=== PATIENT | female | born 1935 | race Caucasian/White ===

== ENCOUNTER → 2016-04-12 | Outpatient (CLI) | payer OTHER | LOC: BMCIMAGING 13:22 | PROVIDERS: ATTEND Family Medicine | DX: R05 Cough (principal); R06.02 Shortness of breath ==

== ENCOUNTER 2016-09-27 10:24 | Observation (INO) | payer OTHER ==
--- NOTE | 2016-09-27 10:40 | CPEKG ---
Heart Rate: 78 RR Interval: 769 P-R Interval: 124 QRSD Interval: 94 QT Interval: 376 QTC Interval: 429 P [place]: 24 QRS [place]: 59 T Wave [place]: 63 EKG Severity - ABNORMAL ECG - EKG Impression: SINUS RHYTHM EKG Impression: NONSPECIFIC T ABNORMALITIES, ANT-LAT LEADS Electronically Signed By: Stephanie Whittington 27-Sep-2016 15:02:46
--- NOTE | 2016-09-27 10:43 | EDPHY ---
H & P Stated Complaint: chest "heaviness" Time Seen by Provider: 09/27/16 10:30 HPI/ROS: CHIEF COMPLAINT: Chest pressure HISTORY OF PRESENT ILLNESS: The patient is a 81 y/o female with CAD complaining of intermittent chest pressure onset 2 nights ago. Onset of "an elephant sitting on my chest" 2 nights ago. Unable to sleep because of chest heaviness and difficulty breathing. Her symptoms were constant for 9 hours the first night. She felt improved yesterday morning when standing and walking around, but the same symptoms returned when she tried to sleep last night. This morning she developed chest pressure while standing and walking around. The pressure is located diffusely across her lower chest and feels similar to prior NH. The pressure is currently present, but feels improved. She took an aspirin this morning. She denies abdominal pain, vomiting, cough, fever, or other acute complaints. REVIEW OF SYSTEMS: Constitutional: No fever, no chills Eyes: No visual changes ENT: No sore throat Respiratory: No cough Cardiac: See HPI Gastrointestinal: No nausea, no vomiting, no abdominal pain Genitourinary: No hematuria, no dysuria Musculoskeletal: No leg pain or swelling Skin: No rash Neurological: No headache, no numbness, no weakness Psychiatric: No depression - Personal History Current Tetanus Diphtheria and Acellular Pertussis (TDAP): Yes Tetanus Vaccine Date: 03/2010 - Medical/Surgical History PMH: PMH includes: 1. Adenocarcinoma of left lung with lobectomy 2. Osteoporosis 3. Hypercholesterolemia 4. Anxiety 5. Depression 6. Popliteal artery embolus with embolectomy - 2014 7. Obstructive sleep apnea - CPAP 8. Atrial fibrillation 9. "silent heart attack" 2014 with 4 stents 10. Peripheral artery disease 11. Diverticulosis without diverticulitis 12. Claudication 13. COPD 14. Carotid disease Prior medical records reviewed including admission 04/23/14 for lobectomy and discharge summary 06/19/14 for popliteal embolectomy and patient's personal paperwork including [facility] discharge information from 09/24/16 for peripheral edema and depression. Hx Asthma: No Hx Chronic Respiratory Disease: No Hx Diabetes: No Hx Cardiac Disease: Yes Hx Renal Disease: No Hx Cirrhosis: No Hx Alcoholism: No Hx HIV/AIDS: No Hx Splenectomy or Spleen Trauma: No Other PMH: CAD, stents. Lung cancer, L upper lobectomy. fibromuscular dysplasia. anxiety/depression. high cholesterol - Social History Smoking Status: Never smoked Additional Social History: DNR status. . Import Clerk: Dr. Gaytan. PCP: Dr. Ammy Samaniego - Physical Exam Exam: General Appearance: Alert, pleasant Eyes: Pupils equal and round, no conjunctival pallor or injection ENT, Mouth: Mucous membranes moist Neck: Normal inspection Respiratory: Lungs are clear to auscultation Cardiovascular: Regular rate and rhythm Gastrointestinal: Abdomen is soft and non-tender Neurological: A&O, nonfocal, normal gait Skin: Warm and dry, no rash Extremities: Nontender, no pedal edema Psychiatric: Flat affect Constitutional: Initial Vital Signs Temperature (C) 36.9 C 09/27/16 10:33 Heart Rate 85 09/27/16 10:33 Respiratory Rate 18 09/27/16 10:33 Blood Pressure 131/87 H 09/27/16 10:33 O2 Sat (%) 95 09/27/16 10:33 O2 Delivery Mode Room Air Allergies/Adverse Reactions: phenytoin sodium [From Dilantin] Allergy (Severe, Verified 09/20/11 14:46) Rash phenytoin sodium extended [From Dilantin] Allergy (Severe, Verified 09/20/11 14: 46) Rash primidone [From Mysoline] Allergy (Severe, Verified 09/20/11 14:46) Other-Enter Comments propoxyphene HCl [From Darvon] Allergy (Severe, Verified 09/20/11 14:46) Vomiting Sulfa (Sulfonamide Antibiotics) Allergy (Severe, Verified 09/20/11 14:46) Vomiting meperidine HCl [From Demerol] Allergy (Intermediate, Verified 09/20/11 14:46) Rash Home Medications: Medication Instructions Recorded Escitalopram Oxalate [Lexapro 10 5 mg PO DAILY 04/19/14 MG] Ezetimibe/Simvastatin [Vytorin 1 each PO HS #0 04/19/14 10-20 mg Tablet] LORazepam [Ativan (*)] 1 mg PO BID@12,18 04/19/14 Metoprolol Tartrate 12.5 mg PO BID 06/19/14 Dabigatran Etexilate Mesyl 150 mg PO BID #0 cap 06/21/14 [Pradaxa 150 MG (*)] Acetaminophen [Tylenol 325mg (*)] 325 mg PO DAILY PRN 09/27/16 Aspirin [Aspirin 81mg (*)] 162 mg PO DAILY 09/27/16 Isosorbide Mononitrate [Imdur 30 15 mg PO HS 09/27/16 mg (*)] LORazepam [Ativan (*)] 0.5 mg PO DAILY 09/27/16 Nitroglycerin [Nitrostat 0.4 mg 0.4 mg SL Q5M PRN 09/27/16 (*)] buPROPion [Wellbutrin 75mg (*)] 75 mg PO BID 09/27/16 oxyCODONE/APAP 5/325 [Percocet 1 tab PO DAILY PRN 09/27/16 5/325 (*)] Medical Decision Making - Diagnostics EKG Interpretation: EKG interpreted by me reveals normal sinus rhythm, rate 78, T-wave inversion in V2 and V3. Imaging Results: Chest x-ray independently reviewed by me reveals no acute disease. Imaging: I viewed and interpreted images myself ED Course/Re-evaluation: This is a 81 y/o female with CAD who presents with a 2-day history of intermittent chest pressure. Stat EKG reveals T-wave inversions in V2 and V3 trauma similar to prior EKG; no evidence of acute ischemia. Given that symptoms are typical of her prior cardiac symptoms, she will require admission for further evaluation. I do not suspect pulmonary embolism or alternative etiology in this patient. 1200: Reassessed patient and discussed work up thus far. Her labs are unremarkable including troponin, d-dimer, and BNP. She continues to have chest pain. I've recommended admission, which she agrees to. 1205: Consulted with hospitalist service. Dr. Hook accepts admission to the PCU for chest pain. Differential Diagnosis: Differential diagnosis includes though it is not limited to pneumonia, pneumothorax, pulmonary embolism, aortic dissection, pericarditis, acute coronary syndrome. - Data Points Laboratory Results: Laboratory Results 09/27/16 10:35 09/27/16 10:35 Medications Given: Aspirin (Aspirin) 162 mg PO DAILY [facility] Stop: 03/27/17 08:59 Last Admin: 09/28/16 08:14 Dose: 81 mg Atorvastatin Calcium (Lipitor) 10 mg PO HS [facility] Stop: 03/26/17 20:59 Last Admin: 09/27/16 19:34 Dose: 10 mg Bupropion HCl (Wellbutrin) 75 mg PO BID [facility] Stop: 03/26/17 20:59 Last Admin: 09/28/16 08:15 Dose: 75 mg Dabigatran (Pradaxa) 150 mg PO BID [facility] Stop: 03/26/17 20:59 Last Admin: 09/27/16 19:34 Dose: 150 mg Ezetimibe (Zetia) 10 mg PO HS [facility] Stop: 03/26/17 20:59 Last Admin: 09/27/16 19:35 Dose: 10 mg Escitalopram Oxalate (Lexapro) 5 mg PO DAILY [facility] Stop: 03/27/17 08:59 Last Admin: 09/28/16 08:15 Dose: 5 mg Dextrose/Sodium Chloride (D5w 1/2 Ns) 1,000 mls @ 100 mls/hr IV CONT [facility] Stop: 03/26/17 18:14 Last Admin: 09/28/16 00:04 Dose: 1,000 mls Isosorbide Mononitrate (Imdur) 15 mg PO HS [facility] Stop: 03/26/17 20:59 Last Admin: 09/27/16 19:34 Dose: 15 mg Lorazepam (Ativan) 1 mg PO DAILY [facility] Stop: 03/27/17 08:59 Last Admin: 09/28/16 08:16 Dose: 1 mg Lorazepam (Ativan) 1 mg PO BID@12,18 [facility] Stop: 03/26/17 17:59 Last Admin: 09/27/16 18:21 Dose: 1 mg Metoprolol Tartrate (Lopressor) 12.5 mg PO BID [facility] Stop: 03/26/17 20:59 Last Admin: 09/28/16 08:16 Dose: 12.5 mg Departure - Departure Disposition: [facility] Inpatient Acute Clinical Impression: Chest pain Qualifiers: Chest pain type: other chest pain Qualified Code(s): R07.89 - Other chest pain Condition: Fair Report Scribed for: Stephanie Whittington Report Scribed by: Yolanda Breaux Date of Report: 09/27/16 Time of Report: 10:45 Physician Review and Approval Statement: 09/27/16 10:45 Portions of this note were transcribed by a medical assembly. I personally performed a history, physical exam, medical decision making, and confirmed accuracy of information the transcribed note.
[2016-09-27 10:44] LABS: % IMMATURE GRANULYOCYTES 0.3 % (0.0-1.1); ABSOLUTE IMMATURE GRANULOCYTES 0.02 10^3/uL (0.00-0.10); ADD DIFF? NO; ADD MORPH? NO; ADD SCAN? NO; ATYPICAL LYMPHOCYTE FLAG 0 (0-99); FRAGMENT RBC FLAG 0 (0-99); HEMATOCRIT 39.5 % (38.0-47.0); HEMOGLOBIN 13.5 g/dL (12.6-16.3); LEFT SHIFT FLG 0 (0-99); LIPEMIA HEMOLYSIS FLAG 90 (0-99); MEAN CELL HEMOGLOBIN CONCENTR. 34.2 g/dL (32.4-36.7); MEAN CELL VOLUME 93.6 fL (81.5-99.8); PLATELET CLUMPS FLAG 10 (0-99); PLATELET COUNT 208 10^3/uL (150-400); RED BLOOD CELL COUNT 4.22 10^6/uL (4.18-5.33); RED CELL DISTRIBUTION WIDTH 12.3 % (11.5-15.2)
[2016-09-27 11:00] LABS: ANION GAP 12 mEq/L (8-16); CALCIUM 9.1 mg/dL (8.5-10.4); CARBON DIOXIDE 22 mEq/l (22-31); CHLORIDE 101 mEq/L (97-110); CREATININE 0.9 mg/dL (0.6-1.0); GLOMERULAR FILTRATION RATE > 60; GLUCOSE 120 mg/dL (70-100); POTASSIUM 4.3 mEq/L (3.5-5.2); SODIUM 135 mEq/L (134-144)
[2016-09-27 11:11] LABS: TROPONIN I < 0.012 ng/mL (0-0.034)
[2016-09-27] MEDS ORDERED: ONDANSETRON 4 MG/2 ML VIAL IVP PRN (12:52)
[2016-09-27] MEDS ORDERED: ONDANSETRON DISINTEGRATING 4 MG TAB PO PRN (12:52)
[2016-09-27] MEDS ORDERED: ACETAMINOPHEN 325 MG TAB PO PRN (12:52)
[2016-09-27] MEDS ORDERED: NITROGLYCERIN 0.4 MG BTL SL PRN ×2 (13:00→17:51)
[2016-09-27] MEDS ORDERED: OXYCODONE/APAP 5/325 TAB PO PRN (17:51)
[2016-09-27] MEDS ORDERED: TEMAZEPAM 15 MG CAP PO PRN (17:56)
[2016-09-27] MEDS ORDERED: NORTRIPTYLINE HCL 10 MG CAP PO PRN (18:02)
[2016-09-27] MEDS ORDERED: D5W 1/2 NS 1,000 ML IV SCH (18:15)
[2016-09-27] MEDS: LORazepam 1 MG TAB PO SCH (18:21)
[2016-09-27] MEDS: METOPROLOL TARTRATE 25 MG TAB PO SCH (19:36)
--- NOTE | 2016-09-27 19:39 | GHP ---
[f rep st] HISTORY AND PHYSICAL DATE OF ADMISSION: 09/27/2016 SERVICE: [facility] Hospitalists. CONSULTS: Cardiology. CHIEF COMPLAINT: Chest pressure. HPI: Ms Dubose is a 81-year-old female who was brought into the emergency department today because of a sensation of "feeling like an elephant was sitting on her chest." She particularly noticed this when she was trying to sleep/lying flat and describes feeling unable to "get air in" despite using her CPAP. She says she has not slept in 2 days because of this. She denies any chest pain, per se and denies any shortness of breath. She denies noticing any recent edema but was told at her recent primary care visit on September 24 that she had some edema. She also was told that she recently gained some weight of about 10 pounds. She became more concerned as the symptoms continued and especially because she had a "silent heart attack" in 2014, seen by Dr. Rosa at [facility] and had 4 stents placed at that time. She has seen Dr. Gaytan at [facility] for cardiac followup but denies having any cardiac issues since the original procedure. She has a history of lung cancer that was treated with an upper lobectomy with a VATS procedure in 2014. She denies any nausea, vomiting, headache, diarrhea or cough. She says that normally she walks several miles a day and does continue to walk intermittently. She denies any increase in symptoms with walking. She says mainly she notices symptoms when she is lying down flat. She has occasionally had heartburn but she denies any GERD sensations currently. She was recently in with her primary care provider on September 24 to discuss ongoing issues with anxiety and depression. She was unable to tolerate decreasing Ativan and increasing her SSRI so she is currently trying a different titration schedule with her PCP, Dr. Samaniego. PAST MEDICAL HISTORY: 1. Left upper lobe adenocarcinoma, status post lobectomy and with a VATS procedure. 2. Fibromuscular dysplasia. 3. Obstructive sleep apnea, chronic CPAP use. 4. Generalized anxiety disorder/depression. 5. Former tobacco use. 6. History of paroxysmal atrial fibrillation. 7. Left lower extremity emboli status post thrombectomy in IR. PAST SURGICAL HISTORY: Lung cancer surgery, left lower extremity thrombectomy, distant history of tonsillectomy and tubal ligation, bilateral cataracts, distant history of appendectomy, some type of colon surgery, umbilical hernia surgery, left knee arthroscopy, and cardiac catheterization with 4 stents placed after a non-STEMI in 06/2014, Dr. Rosa. MEDICATIONS: 1. Pradaxa 150 mg twice a day. 2. Metoprolol 12.5 mg twice a day. 3. Aspirin 162 mg once a day. 4. Lorazepam 1 mg three times a day. 5. Lexapro 5 to 10 mg daily (trying to titrate). 6. Wellbutrin 75 mg twice a day. 7. Vytorin 1 tablet once a day. 8. Isosorbide 12.5 mg once a day. 9. Nitrostat p.r.n. 10. Oxycodone p.r.n. 11. Tylenol p.r.n. ALLERGIES: Sulfa causes vomiting. Darvon causes vomiting. Demerol causes rash. Dilantin causes rash. Mysoline causes confusion. SOCIAL HISTORY: She is (her in 2005 from cancer). She lives in [place] [facility] [place] [facility] [place]. She has several children, 1 of whom lives in [place], Pattie Hyde. She states that Pattie is her power of seo consultant. She is a former smoker. She denies alcohol use. She does have a MOST form and expresses desire to be do not resuscitate. PRIMARY CARE PROVIDER: Ammy Samaniego MD at [facility]. Primary stretcher and drier is Dr. Gaytan at [facility]. HEALTH CARE: Pneumovax 12/08/2005. Shingles vaccine 02/2005. Tdap 2010. Prevnar 13, 04/16/2014. OBJECTIVE: VITAL SIGNS: Blood pressure is 119/63, O2 saturation is 93% on room air. Temperature is 98.2, heart rate is 74, and respiratory rate is 19. GENERALL: She is a very pleasant, elderly female, talkative, in no apparent distress. HEENT: Normocephalic, atraumatic. Pupils equal, round, reactive to light. Extraocular movements are intact. Oropharynx is moist. No obvious lesions. NECK: Supple. No lymphadenopathy, thyromegaly, bruit or JVD noted. CARDIOVASCULAR: Regular rate and rhythm without murmur, rub or gallop. LUNGS: Clear to auscultation bilaterally. ABDOMEN: Soft, normoactive bowel sounds, nontender, nondistended. No hepatosplenomegaly appreciated. : Deferred. BREAST: Deferred. NEUROLOGIC: Cranial nerves 2-12 are grossly intact. Moves all extremities. Speech is fluent. EXTREMITIES: Trace edema noted bilaterally. Is in SCDs and TEDs. Distal pulses 2+. PSYCH: She appears quite anxious but has linear thought process and responding appropriately. Not encephalopathic. LABS: White blood cell count 5.72. Hemoglobin and hematocrit 13.5 and 39.5. Platelet count of 208. D-dimer 0.29. Chemistry: Sodium 135, potassium 4.3, chloride 101, CO2 22, BUN 11, creatinine 0.9. Glucose was 120, calcium 9.1. First troponin less than 0.012. BNP is 89. Review of [facility] laboratory shows vitamin D last checked in 2009 and was 54. TSH was last checked in 2014 and was 2.04. Chest x-ray shows some hyperextension in the hemidiaphragms. Surgical clips noted in the left hilar area. No acute edema or infiltrate noted. I personally reviewed this study and agree with Radiology interpretation. EKG shows a sinus rhythm, normal axis, normal rate. Question delta wave in leads 2 and 3, and nonspecific ST changes in precordial leads. ASSESSMENT/PLAN: 1. Chest discomfort in the setting of known cardiovascular disease status post 4 stents. She was placed on telemetry with monitoring, serial troponins have been ordered, and cardiology consult was done. Dr. Gaytan will evaluate the patient in the morning as she is hemodynamically stable and acute labs are normal. I have discussed with her that a cardiac cath would likely be appropriate given her history of 4 vessel stents. At this time she does not want to do cardiac cath but will allow Dr. Gaytan to revisit with her in the morning. I have made her n.p.o. after midnight with some maintenance fluids and I have also ordered an echo for the morning. I have held her anticoagulation pending possible interventional cardiology procedure in the morning. 2. History of lung cancer status post lobectomy. O2 is normal, chest x-ray does not reveal any acute pulmonary issues. D-dimer was also negative. 3. Obstructive sleep apnea. She did not bring her CPAP with her so we have ordered 1 for hospital use. I have ordered a sleeping tablet for to take p.r.n. (she says she has never taken sleeping tablet previously). Can choose between Restoril or Pamelor. 4. Anxiety and depression. Says she is seeing a therapist regularly. Has had a difficult time titrating off chronic benzodiazepines and on two or more effective doses of SSRIs. She has been working with her PCP, Dr. Samaniego about this as an outpatient. Certainly could be some component of anxiety contributing to her current symptoms. 5. Fibromuscular dysplasia. 6. History of paroxysmal atrial fibrillation. She is currently in sinus rhythm and is being monitored on telemetry. 7. History of left lower extremity emboli. She is on chronic anticoagulation which will be held overnight in anticipation of possible cardiac procedure tomorrow. 8. Deep vein thrombosis prophylaxis. SCDs and TEDs in place, pharmacological is contraindicated given a possible cardiac procedure in the morning. PCP: Ammy Samaniego MD at [facility]. CODE STATUS: MOST form reviewed, copy for the chart, DNR ordered per her instructions. DISPOSITION: Likely greater than 2 midnights depending on cardiac evaluation in the morning. /[id number]/MODL MTDD
[2016-09-27 19:41] LABS: CREATINE KINASE-MB FRACTION 0.56 ng/mL (0-3.19); TROPONIN I < 0.012 ng/mL (0-0.034)
[2016-09-27] MEDS: buPROPion 75 MG TAB PO SCH (19:48)
[2016-09-27] MEDS ORDERED: DABIGATRAN ETEXILATE MESYL 150 MG CAP PO SCH (21:00)
[2016-09-27] MEDS ORDERED: ISOSORBIDE MONONITRATE 30 MG TAB.SR PO SCH (21:00)
[2016-09-27] MEDS ORDERED: ATORVASTATIN CALCIUM 10 MG TAB PO SCH (21:00)
[2016-09-27] MEDS ORDERED: EZETIMIBE 10 MG TAB PO SCH (21:00)
[2016-09-28 05:21] LABS: HEMATOCRIT 37.6 % (38.0-47.0); HEMOGLOBIN 12.6 g/dL (12.6-16.3); MEAN CELL HEMOGLOBIN 31.9 pg (27.9-34.1); MEAN CELL HEMOGLOBIN CONCENTR. 33.5 g/dL (32.4-36.7); MEAN CELL VOLUME 95.2 fL (81.5-99.8); RED BLOOD CELL COUNT 3.95 10^6/uL (4.18-5.33); RED CELL DISTRIBUTION WIDTH 12.4 % (11.5-15.2)
[2016-09-28 05:26] LABS: INR 1.18 (0.83-1.16)
[2016-09-28 05:30] LABS: CHOLESTEROL 109 mg/dL (140-220); CHOLESTEROL/HDL RATIO 2.14 RATIO (1.00-4.44); HIGH DENSITY LIPOPROTEIN 51 mg/dL (40-85); LDL/HDL RATIO 0.92 RATIO (1.00-3.22); LOW DENSITY LIPOPROTEIN 47 mg/dL (80-100); NON-HIGH DENSITY LIPOPROTEIN 58 mg/dL (90-129); TRIGLYCERIDE 58 mg/dL (35-135); VERY LOW DENSITY LIPOPROTEINS 11 mg/dL (8-25)
[2016-09-28 05:44] LABS: VITAMIN D 25-HYDROXY TOTAL 49.5 ng/mL (30-100)
[2016-09-28 05:46] LABS: TROPONIN I < 0.012 ng/mL (0-0.034)
--- NOTE | 2016-09-28 07:37 | CPEKG ---
Heart Rate: 48 RR Interval: 1250 P-R Interval: 120 QRSD Interval: 86 QT Interval: 452 QTC Interval: 404 P [place]: 57 QRS [place]: 3 T Wave [place]: 30 EKG Severity - OTHERWISE NORMAL ECG - EKG Impression: SINUS BRADYCARDIA Electronically Signed By: Stephanie Whittington 28-Sep-2016 13:13:58
[2016-09-28] MEDS: buPROPion 75 MG TAB PO SCH ×3 (08:15→15:22)
[2016-09-28] MEDS: METOPROLOL TARTRATE 25 MG TAB PO SCH ×2 (08:16→15:22)
--- NOTE | 2016-09-28 08:55 | CPEKG ---
Heart Rate: 62 RR Interval: 968 P-R Interval: 120 QRSD Interval: 92 QT Interval: 420 QTC Interval: 427 P [place]: 17 QRS [place]: 56 T Wave [place]: 56 EKG Severity - ABNORMAL ECG - EKG Impression: SINUS RHYTHM EKG Impression: VENTRICULAR PREMATURE COMPLEX EKG Impression: T WAVE INVERSIONS CONSISTENT WITH ANTERIOR ISCHEMIA. Electronically Signed By: Jose R Solitario 28-Sep-2016 17:58:20
[2016-09-28] MEDS ORDERED: ESCITALOPRAM OXALATE 10 MG TAB PO SCH (09:00)
[2016-09-28] MEDS ORDERED: LORazepam 1 MG TAB PO SCH (09:00)
[2016-09-28] MEDS ORDERED: ASPIRIN 81 MG CHEWABLE TAB PO SCH (09:00)
--- NOTE | 2016-09-28 09:09 | ECHO ---
[id number] + + [address] : : [place] [address] : : [phone] + + Adult Echocardiographic Report + + :Name: SWETA RUIZ WStudy Date: 09/28/2016 07:37 AM : : Hospital Admission Number: [id number] Loc ation: 209: :: 1935 Gender: Female Height: 62 in : :Age: 81 yrs Race: WH Weight: 134 lb : :Reason For Study: Chest pressure : : BSA: 1.6 me ters2 : :History: S/P 4 stents (2014) : + + MMode/2D Measurements \T\ Calculations IVSd: 0.61 cm LVIDd: 4.6 cm FS: 40.3 % Ao root diam: LVPWd: 0.74 cm LVIDs: 2.8 cm EDV(Teich): 3.3 cm 97.9 ml LA dimension: ESV(Teich): 3.1 cm 28.4 ml EF(Teich): 71.0 % LVLd ap4: 6.6 cm SV(MOD-sp4): EDV(MOD-sp4): 31.0 ml 43.0 ml LVLs ap4: 5.4 cm ESV(MOD-sp4): 12.0 ml EF(MOD-sp4): 72.1 % Normal Measurement Values: + + :LVIDd (3.5-5.7cm) IVSd (0.6-1.1cm) LVPWd (0.6-1.1cm) Aortic Root (2.0-3.7cm)Left Atrium (1.5-4.0cm): :LV Vol(d) (76-115ml) LV Vol(s) (29-48ml) Ejec Fraction (50-65%)PV Homer (0.6- 1.2m/s) TV Homer (0.4-1.0m/s) : :MV E Homer (0.8-1.0m/s)MV A Homer (0.3-1.0m/s)LVOT Homer (0.7-1.2m/s) Asc Ao Homer ( 0.9-1.8m/s) : + + Doppler Measurements \T\ Calculations MV E max homer: 79.0 cm/sec Ao V2 max: 127.6 cm/sec MV A max homer: 101.2 cm/sec Ao max P.5 mmHg MV E/A: 0.78 Left Ventricle The left ventricle is normal in size. There is normal left ventricular wall thickness. Left ventricular systolic function is normal. Ejection Fraction = 60-65%. No regional wall motion abnormalities noted. Right Ventricle The right ventricle is normal in size and function. Atria The left atrial size is normal. Right atrial size is normal. The interatrial septum is intact with no evidence for an atrial septal defect. Mitral Valve Calcified mitral apparatus. There is no evidence of mitral valve prolapse. There is no mitral valve stenosis. There is mild to moderate mitral regurgitation. Tricuspid Valve Normal tricuspid valve. There is trace tricuspid regurgitation. Aortic Valve The aortic valve is trileaflet. The aortic valve opens well. There is no aortic stenosis. There is no aortic insufficiency. Pulmonic Valve The pulmonic valve is normal in structure and function. There is no pulmonic valvular regurgitation. Great Vessels The aortic root is normal size. Pericardium/Pleural There is no pericardial effusion. There is a fat pad seen. Conclusion A complete two-dimensional transthoracic echocardiogram was performed (2D, M-mode, Doppler and color flow Doppler). Left ventricular systolic function is normal. Ejection Fraction = 60-65%. Calcified mitral apparatus. There is mild to moderate mitral regurgitation. There is trace tricuspid regurgitation. There is a fat pad seen. Mitral annular calcification. Final Reading Physician: Eliseo Terrell signed on 09/28/2016 09:09 AM Ordering Physician: FABIAN LEES Performed By: Gemma Obando, PARI
--- NOTE | 2016-09-28 10:42 | PDCARCONS ---
Cardiology Consult Reason for Consult: Chest pressure Chief Complaint: Chest pressure Requesting Physician: Nereida History of Present Illness: 81-year-old female admitted with stage III day history of pressure in the chest. Patient's past cardiac history is somewhat unclear. [facility] with different symptoms. At that time she was taken to the cardiac catheterization lab by Dr. Ferrera. She was told that she had fibromuscular dysplasia. She had 4 stents placed but was told that there was an incomplete result with poor clinical result. It was felt at that time that she was likely the within 2-24 hours. This was in 2014. She was discharged to home hospice but recovered well and has had no limitations since that time. She has been cared for by Dr. Gaytan at the [facility]. She has had follow-up testing which was on unremarkable. She walks daily without limitations. She was diagnosed with sleep apnea. She uses a automatic CPAP system. On Tuesday she began noticing that was pushing more air into her chest than usual. She felt that the pressure she felt was related to this. Tuesday and Tuesday the pressure resolved when she sat up. Yesterday it did not. She was advised to come to the emergency room for further evaluation and was admitted. She had pressure continuously from 9 in the morning until 12:00 p.m. last night. Patient denies syncope or near syncope. She has had no chest pain/angina. She has had no nausea vomiting. She has had no diaphoresis. She is very clear that this discomfort is a pressure. History Information - Allergies/Home Medication List Allergies/Adverse Reactions: phenytoin sodium [From Dilantin] Allergy (Severe, Verified 09/20/11 14:46) Rash phenytoin sodium extended [From Dilantin] Allergy (Severe, Verified 09/20/11 14: 46) Rash primidone [From Mysoline] Allergy (Severe, Verified 09/20/11 14:46) Other-Enter Comments propoxyphene HCl [From Darvon] Allergy (Severe, Verified 09/20/11 14:46) Vomiting Sulfa (Sulfonamide Antibiotics) Allergy (Severe, Verified 09/20/11 14:46) Vomiting meperidine HCl [From Demerol] Allergy (Intermediate, Verified 09/20/11 14:46) Rash Home Medications: Escitalopram Oxalate [Lexapro 10 MG] 5 mg PO DAILY 02/27/15 [Last Taken 09/27/16 ] Ezetimibe/Simvastatin [Vytorin 10-20 mg Tablet] 1 each PO HS #0 04/19/14 [Last Taken 09/26/16] LORazepam [Ativan (*)] 1 mg PO BID@12,18 04/19/14 [Last Taken 09/26/16 18:00] Metoprolol Tartrate 12.5 mg PO BID 06/19/14 [Last Taken 09/27/16] Acetaminophen [Tylenol 325mg (*)] 325 mg PO DAILY PRN 09/27/16 [Last Taken Unknown] Aspirin [Aspirin 81mg (*)] 162 mg PO DAILY 09/27/16 [Last Taken 09/27/16] Isosorbide Mononitrate [Imdur 30 mg (*)] 15 mg PO HS 09/27/16 [Last Taken ] LORazepam [Ativan (*)] 0.5 mg PO DAILY 09/27/16 [Last Taken 09/27/16] Nitroglycerin [Nitrostat 0.4 mg (*)] 0.4 mg SL Q5M PRN 09/27/16 [Last Taken Unknown] buPROPion [Wellbutrin 75mg (*)] 75 mg PO BID 09/27/16 [Last Taken 09/27/16] oxyCODONE/APAP 5/325 [Percocet 5/325 (*)] 1 tab PO DAILY PRN 09/27/16 [Last Taken Unknown] I have personally reviewed and updated: family history, medical history, social history, surgical history - Past Medical History Additional medical history: Fibromuscular dysplasia, cardiac event of uncertain etiology. - Surgical History Reports: coronary stent - Family History Positive for: non-pertinent - Social History Smoking Status: Never smoked Additional social history: She lost her last year to cancer. She lives alone. She has 3 involved children. She is depressed. Cardiac History - Cardiac History Cardiac Risk Factors: age > 65 Physical Exam Temp Pulse Resp BP Pulse Ox 36.7 C 75 16 119/68 96 09/28/16 07:31 09/28/16 07:31 09/28/16 07:31 09/28/16 07:31 09/28/16 07:31 O2 (L/minute) 2 Constitutional: no apparent distress, appears nourished Eyes: other (Left eye has scleral injection with anisocoria.) Ears, Nose, Mouth, Throat: moist mucous membranes Cardiovascular: regular rate and rhythym, no murmur, rub, or gallop, No systolic murmur, No JVD Peripheral Pulses: 1+: carotid (R), carotid (L), femoral (R), femoral (L), dorsalis-pedis (R), dorsalis-pedis (L) Respiratory: no respiratory distress, no rales or rhonchi, clear to auscultation Gastrointestinal: normoactive bowel sounds, soft, non-tender abdomen, no palpable masses Genitourinary: no bladder fullness Skin: warm, normal color, no rashes or abrasions Musculoskeletal: full muscle strength Neurologic: AAOx3, sensation intact bilaterally, No weakness, No facial droop Psychiatric: interacting appropriately, not anxious, depressed Lymph, Heme, Immunologic: no cervical LAD, no supraclavicular LAD Lab and Imaging 09/28/16 04:30 09/27/16 10:35 WBC 4.81 10^3/uL (3.80-9.50) 09/28/16 04:30 RBC 3.95 10^6/uL (4.18-5.33) L 09/28/16 04:30 Hgb 12.6 g/dL (12.6-16.3) 09/28/16 04:30 Hct 37.6 % (38.0-47.0) L 09/28/16 04:30 MCV 95.2 fL (81.5-99.8) 09/28/16 04:30 MCH 31.9 pg (27.9-34.1) 09/28/16 04:30 MCHC 33.5 g/dL (32.4-36.7) 09/28/16 04:30 RDW 12.4 % (11.5-15.2) 09/28/16 04:30 Plt Count 190 10^3/uL (150-400) 09/28/16 04:30 MPV 10.0 fL (8.7-11.7) 09/27/16 10:35 Neut % (Auto) 66.7 % (39.3-74.2) 09/27/16 10:35 Lymph % (Auto) 24.5 % (15.0-45.0) 09/27/16 10:35 [place] % (Auto) 6.8 % (4.5-13.0) 09/27/16 10:35 Eos % (Auto) 1.2 % (0.6-7.6) 09/27/16 10:35 Baso % (Auto) 0.5 % (0.3-1.7) 09/27/16 10:35 Nucleat RBC Rel Count 0.0 % (0.0-0.2) 09/27/16 10:35 Absolute Neuts (auto) 3.81 10^3/uL (1.70-6.50) 09/27/16 10:35 Absolute Lymphs (auto) 1.40 10^3/uL (1.00-3.00) 09/27/16 10:35 Absolute Monos (auto) 0.39 10^3/uL (0.30-0.80) 09/27/16 10:35 Absolute Eos (auto) 0.07 10^3/uL (0.03-0.40) 09/27/16 10:35 Absolute Basos (auto) 0.03 10^3/uL (0.02-0.10) 09/27/16 10:35 Absolute Nucleated RBC 0.00 10^3/uL (0-0.01) 09/27/16 10:35 Immature Gran % 0.3 % (0.0-1.1) 09/27/16 10:35 Immature Gran # 0.02 10^3/uL (0.00-0.10) 09/27/16 10:35 PT 15.0 SEC (12.0-15.0) 09/28/16 04:30 INR 1.18 (0.83-1.16) H 09/28/16 04:30 D-Dimer 0.29 ug/mLFEU (0.00-0.50) 09/27/16 10:31 Sodium 135 mEq/L (134-144) 09/27/16 10:35 Potassium 4.3 mEq/L (3.5-5.2) 09/27/16 10:35 Chloride 101 mEq/L (97-110) 09/27/16 10:35 Carbon Dioxide 22 mEq/l (22-31) 09/27/16 10:35 Anion Gap 12 mEq/L (8-16) 09/27/16 10:35 BUN 11 mg/dL (7-23) 09/27/16 10:35 Creatinine 0.9 mg/dL (0.6-1.0) 09/27/16 10:35 Estimated GFR > 60 09/27/16 10:35 Glucose 120 mg/dL (70-100) H 09/27/16 10:35 Calcium 9.1 mg/dL (8.5-10.4) 09/27/16 10:35 CK-MB (CK-2) Fraction 0.60 ng/mL (0-3.19) 09/28/16 04:30 Troponin I < 0.012 ng/mL (0-0.034) 09/28/16 04:30 NT-Pro-B Natriuret Pep 89 pg/mL (0-450) 09/27/16 10:35 Triglycerides 58 mg/dL (35-135) 09/28/16 04:30 Cholesterol 109 mg/dL (140-220) L 09/28/16 04:30 Cholesterol Risk Factr 0.4 (0.2-1.0) 09/28/16 04:30 LDL Cholesterol, Calc 47 mg/dL (80-100) L 09/28/16 04:30 LDL Risk Factor 0.4 (0.2-1.0) 09/28/16 04:30 VLDL Cholesterol 11 mg/dL (8-25) 09/28/16 04:30 Non-HDL Cholesterol 58 mg/dL (90-129) L 09/28/16 04:30 HDL Cholesterol 51 mg/dL (40-85) 09/28/16 04:30 LDL/HDL Ratio 0.92 RATIO (1.00-3.22) L 09/28/16 04:30 Cholesterol/HDL Ratio 2.14 RATIO (1.00-4.44) 09/28/16 04:30 25-OH Vitamin D Total 49.5 ng/mL (30-100) 09/28/16 04:30 TSH 2.710 uIU/mL (0.465-4.680) 09/28/16 04:30 Interpretation: Mild hyperinflation without infiltrate. No significant air in the stomach. EKG additional interpertation: Sinus rhythm with subtle T-wave inversions V1 through V3. No acute ST-T changes. No evolving changes over 24 hours. A/P Assessment: 3 day history of what sounds like air trapping in the lower chest. Associated with different experience of her CPAP with more air blowing into her mouth. I think this is likely the etiology of her discomfort. With 3 days of discomfort negative cardiac enzymes stable EKG I do not think this represents an acute coronary syndrome. Patient's past cardiac history is unclear at this point. Fibromuscular dysplasia and a very abnormal angiogram is all I know at this point. She denies other signs or symptoms concerning for heart failure or angina. Her echocardiogram today shows normal left ventricular function. Plan: Ambulate patient in the [place] with a flight of stairs. If she has no discomfort with plan for discharge. Follow up with Dr. Merritt Gaytan as an outpatient 14 days. I think it is important to review her diagnostic angiograms from [facility] to determine what happened in 2014 and to guide future medical management. Would not recommend further risk stratification at this point, until we find out what happened at [facility]. Past Medical History - Personal History Current Tetanus Diphtheria and Acellular Pertussis (TDAP): Yes Tetanus Vaccine Date: 03/2010 - Medical/Surgical History Hx Asthma: No Hx Chronic Respiratory Disease: No Hx Cardiac Disease: Yes Hx Diabetes: No Hx Renal Disease: No Hx Alcoholism: No Hx Cirrhosis: No Hx HIV/AIDS: No Hx Splenectomy or Spleen Trauma: No Other PMH: CAD, stents. Lung cancer, L upper lobectomy. fibromuscular dysplasia. anxiety/depression. high cholesterol - Social History Smoking Status: Never smoked Review of Systems - Review of Systems Constitutional: malaise. denies: chills, fever EENTM: no symptoms reported Respiratory: other (pressure with breathing) Cardiac: denies: chest pain, edema, irregular heart rate, lightheadedness, palpitations, syncope Gastrointestinal/Abdominal: no symptoms reported. denies: abdominal distention Genitourinary: no symptoms Musculoskelatal: no symptoms Skin: no symptoms Neurological: no symptoms Hematologic/Lymphatic: no symptoms reported Immunologic/allergic: no symptoms reported
[2016-09-28 11:15] VITALS: BP 119/64; PULSE 69; RESP 20; TEMP 97.4
[2016-09-28] MEDS: LORazepam 1 MG TAB PO SCH (12:32)
[2016-09-28 13:49] VITALS: O2SAT 87
== END 2016-09-28 15:35 | disposition home or self-care (01) ==
LOC: EDUNIT# → F2W 12:57
PROVIDERS: ADMIT Internal Medicine; ATTEND Internal Medicine
DX: R07.89 Other chest pain (principal); I25.10 Atherosclerotic heart disease of native coronary artery without angina pectoris; J44.9 Chronic obstructive pulmonary disease, unspecified; I25.2 Old myocardial infarction; Z85.118 Personal history of other malignant neoplasm of bronchus and lung; I73.9 Peripheral vascular disease, unspecified; I65.29 Occlusion and stenosis of unspecified carotid artery; E78.00 Pure hypercholesterolemia, unspecified; G47.33 Obstructive sleep apnea (adult) (pediatric); Z87.891 Personal history of nicotine dependence; Z95.5 Presence of coronary angioplasty implant and graft
CPT/HCPCS: 71020; 93005; 93306; G0378

== ENCOUNTER → 2017-03-03 | Outpatient (CLI) | payer OTHER | LOC: BMCIMAGING 12:20 | PROVIDERS: ATTEND Physician Assistant | DX: R06.1 Stridor (principal); J98.4 Other disorders of lung; Z85.118 Personal history of other malignant neoplasm of bronchus and lung ==

== ENCOUNTER 2017-04-17 19:07 | Inpatient (IN) | payer OTHER ==
[2017-04-17] MEDS ORDERED: IPRATROPIUM/ALBUTEROL 3 ML DEYVIAL IH ONE (19:19)
--- NOTE | 2017-04-17 19:19 | EDPHY ---
H & P Stated Complaint: Cough, Generalized weakness Time Seen by Provider: 04/17/17 19:18 HPI/ROS: CHIEF COMPLAINT: Cough, dyspnea HISTORY OF PRESENT ILLNESS: The patient presents to the emergency department with severe cough and dyspnea. The patient reports her symptoms began several weeks ago. She initially had some improvement of her symptoms however had progression worsening symptoms over the past 3-4 days. The patient does have a history of COPD but does not use regular inhalers. She is not on oxygen. She has a history of coronary artery disease status post CABG several years ago. The patient denies any abdominal pain, vomiting or diarrhea. The patient was seen by home health service who evaluated the patient and referred her to the emergency department for further workup. The patient reports severe dyspnea with expiratory wheezing. REVIEW OF SYSTEMS: A comprehensive 10 point review of systems is otherwise negative aside from elements mentioned in the history of present illness. Source: Patient Exam Limitations: No limitations - Personal History Current Tetanus Diphtheria and Acellular Pertussis (TDAP): Yes Tetanus Vaccine Date: 03/2010 - Medical/Surgical History Hx Asthma: No Hx Chronic Respiratory Disease: No Hx Diabetes: No Hx Cardiac Disease: Yes Hx Renal Disease: No Hx Cirrhosis: No Hx Alcoholism: No Hx HIV/AIDS: No Hx Splenectomy or Spleen Trauma: No Other PMH: CAD, stents. Lung cancer, L upper lobectomy. fibromuscular dysplasia. anxiety/depression. high cholesterol - Social History Smoking Status: Never smoked - Physical Exam Exam: General Appearance: Alert, mild discomfort secondary to respiratory distress Eyes: Pupils equal and round no pallor or injection ENT, Mouth: Mucous membranes moist Respiratory: Tachypnea, diffuse expiratory wheezing, Cardiovascular: Regular rate and rhythm Gastrointestinal: Abdomen is soft and nontender, no masses, bowel sounds normal Neurological: 5/5 strength noted all 4 extremities Skin: Warm and dry, no rashes Musculoskeletal: Neck is supple nontender Extremities: No asymmetry, no edema Constitutional: Initial Vital Signs Temperature (C) 37.0 C 04/17/17 19:14 Heart Rate 90 04/17/17 19:14 Respiratory Rate 20 04/17/17 19:14 Blood Pressure 128/83 H 04/17/17 19:14 O2 Sat (%) 92 04/17/17 19:14 O2 Delivery Mode Room Air Allergies/Adverse Reactions: phenytoin sodium [From Dilantin] Allergy (Severe, Verified 04/17/17 19:17) Rash phenytoin sodium extended [From Dilantin] Allergy (Severe, Verified 04/17/17 19: 17) Rash primidone [From Mysoline] Allergy (Severe, Verified 04/17/17 19:17) Other-Enter Comments propoxyphene HCl [From Darvon] Allergy (Severe, Verified 04/17/17 19:17) Vomiting Sulfa (Sulfonamide Antibiotics) Allergy (Severe, Verified 04/17/17 19:17) Vomiting meperidine HCl [From Demerol] Allergy (Intermediate, Verified 04/17/17 19:17) Rash Home Medications: Medication Instructions Recorded Escitalopram Oxalate [Lexapro 10 5 mg PO DAILY 04/19/14 MG] Ezetimibe/Simvastatin [Vytorin 1 each PO HS #0 04/19/14 10-20 mg Tablet] LORazepam [Ativan (*)] 1 mg PO BID@12,18 04/19/14 Metoprolol Tartrate 12.5 mg PO BID 06/19/14 Dabigatran Etexilate Mesyl 150 mg PO BID #0 cap 06/21/14 [Pradaxa 150 MG (*)] Acetaminophen [Tylenol 325mg (*)] 325 mg PO DAILY PRN 09/27/16 Aspirin [Aspirin 81mg (*)] 162 mg PO DAILY 09/27/16 Isosorbide Mononitrate [Imdur 30 15 mg PO HS 09/27/16 mg (*)] LORazepam [Ativan (*)] 0.5 mg PO DAILY 09/27/16 Nitroglycerin [Nitrostat 0.4 mg 0.4 mg SL Q5M PRN 09/27/16 (*)] buPROPion [Wellbutrin 75mg (*)] 75 mg PO BID 09/27/16 oxyCODONE/APAP 5/325 [Percocet 1 tab PO DAILY PRN 09/27/16 5/325 (*)] Acetaminophen [Tylenol 325mg (*)] 650 mg PO Q4HRS PRN #0 tab 09/28/16 Medical Decision Making - Diagnostics EKG Interpretation: EKG: Complete interpretation has been separately recorded in the [facility] archive. Summary impression: Sinus rhythm, rate 91, no ischemic changes ED Course/Re-evaluation: The patient presents the emergency department with acute dyspnea and wheezing. The patient had an IV established. She received supplemental oxygen. The patient received 125 mg of Solu-Medrol. The patient was placed on a test fixture designer. She was taken for a chest x-ray which demonstrates no evidence of an obvious infiltrate, pneumothorax or heart failure. The patient presents to the ED with fairly significant dyspnea. She has a RSV infection. The patient will be admitted to the hospital further evaluation and management. Consultation was made with Dr. Davis from the hospitalist service who will admit the patient to the hospital this evening. Re-evaluated the patient at 8:20 p.m.. Her tachypnea is improving. Differential Diagnosis: Differential diagnosis considered includes pneumonia, COPD exacerbation, influenza, bronchitis, heart failure, arrhythmia, influenza - Data Points Laboratory Results: Laboratory Results 04/17/17 19:50 04/17/17 04/17/17 04/17/17 19:50 19:50 19:25 WBC 4.87 10^3/uL 10^3/uL (3.80-9.50) RBC 4.38 10^6/uL 10^6/uL (4.18-5.33) Hgb 13.7 g/dL g/dL (12.6-16.3) Hct 41.8 % % (38.0-47.0) MCV 95.4 fL fL (81.5-99.8) MCH 31.3 pg pg (27.9-34.1) MCHC 32.8 g/dL g/dL (32.4-36.7) RDW 13.1 % % (11.5-15.2) Plt Count 167 10^3/uL 10^3/uL (150-400) MPV 9.5 fL fL (8.7-11.7) Neut % (Auto) 57.9 % % (39.3-74.2) Lymph % (Auto) 23.2 % % (15.0-45.0) [place] % (Auto) 14.6 % H % (4.5-13.0) Eos % (Auto) 3.3 % % (0.6-7.6) Baso % (Auto) 0.8 % % (0.3-1.7) Nucleat RBC Rel Count 0.0 % % (0.0-0.2) Absolute Neuts (auto) 2.82 10^3/uL 10^3/uL (1.70-6.50) Absolute Lymphs (auto) 1.13 10^3/uL 10^3/uL (1.00-3.00) Absolute Monos (auto) 0.71 10^3/uL 10^3/uL (0.30-0.80) Absolute Eos (auto) 0.16 10^3/uL 10^3/uL (0.03-0.40) Absolute Basos (auto) 0.04 10^3/uL 10^3/uL (0.02-0.10) Absolute Nucleated RBC 0.00 10^3/uL 10^3/uL (0-0.01) Immature Gran % 0.2 % % (0.0-1.1) Immature Gran # 0.01 10^3/uL 10^3/uL (0.00-0.10) Sodium Pending Potassium Pending Chloride Pending Carbon Dioxide Pending Anion Gap Pending BUN Pending Creatinine Pending Estimated GFR Pending Glucose Pending Calcium Pending Nasal Influenza A PCR Pending Nasal Influenza B PCR Pending Medications Given: Discontinued Medications Albuterol/Ipratropium (Duoneb) 3 ml IH EDNOW ONE Stop: 04/17/17 19:20 Last Admin: 04/17/17 19:57 Dose: 3 ml Methylprednisolone Sodium Succinate (Solu-Medrol) 125 mg IVP EDNOW ONE Stop: 04/17/17 19:37 Last Admin: 04/17/17 19:57 Dose: Not Given Departure - Departure Disposition: [facility] Inpatient Acute Clinical Impression: Chronic obstructive pulmonary disease with acute exacerbation, RSV ( respiratory syncytial virus infection), Lung cancer Condition: Fair Referrals: Ammy Samaniego MD [Primary Care Provider] - As per Instructions
[2017-04-17] MEDS ORDERED: methylPREDNISolone SOD SUCC 125 MG/2 ML VIAL IVP ONE (19:36)
[2017-04-17 19:56] LABS: PLATELET COUNT 167 10^3/uL (150-400)
--- NOTE | 2017-04-17 20:22 | CPEKG ---
Heart Rate: 91 RR Interval: 659 P-R Interval: 147 QRSD Interval: 90 QT Interval: 352 QTC Interval: 434 P [place]: 0 QRS [place]: 38 T Wave [place]: 35 EKG Severity - ABNORMAL ECG - EKG Impression: SINUS RHYTHM EKG Impression: RIGHT ATRIAL ABNORMALITY Electronically Signed By: Fabio Murillo 17-Apr-2017 20:24:29
[2017-04-17] MEDS ORDERED: ACETAMINOPHEN 325 MG TAB PO PRN (20:23)
[2017-04-17] MEDS: IPRATROPIUM/ALBUTEROL 3 ML DEYVIAL IH SCH (21:23)
[2017-04-17] MEDS ORDERED: OXYCODONE/APAP 5/325 TAB PO PRN (23:25)
[2017-04-18] MEDS: METOPROLOL TARTRATE 25 MG TAB PO SCH ×3 (00:02→21:08)
[2017-04-18] MEDS: LORazepam 1 MG TAB PO SCH ×2 (00:04→21:07)
[2017-04-18] MEDS: methylPREDNISolone SOD SUCC 40 MG/ML VIAL IVP SCH ×5 (00:05→22:41)
--- NOTE | 2017-04-18 00:16 | GHP ---
[f rep st] HISTORY AND PHYSICAL DATE OF ADMISSION: 04/17/2017 CHIEF COMPLAINT: Cough. HISTORY OF PRESENT ILLNESS: The patient is a pleasant 81-year-old female with a past medical history of lung cancer having a left upper lobe lobectomy who presented to the [facility] with complaint of cough and shortness of breath. She was not hypoxic on her evaluation but did have a pretty severe cough. Influenza testing was negative, but she did test positive for RS V. PAST MEDICAL HISTORY: 1. Coronary artery disease, status post stent placement. 2. Atrial fibrillation, paroxysmal. 3. Left upper lobe adenocarcinoma, status post lobectomy. 4. Obstructive sleep apnea on CPAP. 5. Chronic hypoxic respiratory failure on supplemental oxygen at nighttime. 6. Fibromuscular dysplasia. 7. Anxiety and depression. PAST SURGICAL HISTORY: 1. Left lower extremity thrombectomy. 2. Lobectomy. 3. Tonsillectomy. 4. Tubal ligation. 5. Cataract surgery. 6. Appendectomy. 7. Hernia repair. 8. Left knee arthroscopy. MEDICATIONS: This medication list is taken from her ambulatory orders. 1. Aspirin 81 mg daily. 2. Wellbutrin 75 mg twice a day. 3. Pradaxa 150 mg twice a day. 4. Lexapro 5 mg daily. 5. Vytorin 1 tablet daily. 6. Isosorbide mononitrate 15 mg nightly. 7. Lorazepam 1 mg nightly. 8. Metoprolol 12.5 mg twice a day. 9. Oxycodone/acetaminophen 5/325, one tablet daily as needed for pain. ALLERGIES: 1. Dilantin. 2. Primidone. 3. Darvon. 4. Sulfa. 5. Meperidine. BODY AFTER ALLERGIES: FAMILY HISTORY: Unknown family history. SOCIAL HISTORY: Patient is with her passing away in 2016 from cancer. She lives in independent living at [place]. She has several children. Her power of admitted attorneys will be her daught er . She denies smoking ever in her lifetime. No alcohol use. Previously, she has been listed as a do not attempt resuscitation code status. REVIEW OF SYSTEMS: CONSTITUTIONAL: No complaints of any subjective fevers. ENT: Positive for uppe r respiratory illness symptoms over the past 2 to 3 weeks. CARDIOVASCULAR: No complaints of chest p ains, palpitations, or syncopal episodes. RESPIRATORY: Positive for productive cough. GI: No naus ea, vomiting, diarrhea, or constipation. : No report of any difficulties with urination. NEUROLO GIC: No complaints of any headaches or focal weakness. HEMATOLOGIC: No history of any deep vein th rombosis or pulmonary embolism. PSYCHIATRIC: Positive for anxiety and depression history. ENDOCRIN E: No history of diabetes or thyroid abnormalities. SKIN: No new skin rashes. MUSCULOSKELETAL: N o focal joint pains. PHYSICAL EXAM: VITAL SIGNS: Temperature 37.4, blood pressure 131/88, heart rate 93, respirations 18 , satting 92% on room air. APPEARANCE: In general, she appears comfortable. She is awake, alert, c onversant, and able to provide a good history. HEENT: Extraocular movements intact. No scleral ict erus is noted. NECK: Supple. No thyroid enlargement noted. CHEST: Normal respiratory effort. Di ffuse wheezing throughout, moderate in severity. HEART: Regular. No murmurs. ABDOMEN: Soft, nont rivera. : No Whittaker catheter in place. EXTREMITIES: No significant edema. NEUROLOGIC: Cranial n erves 2 through 12 appear intact. Strength 5/5 in all extremities. LABS: White blood cell count 4, hemoglobin 13, platelets 167. Sodium 133, potassium 4.1, chloride 9 7, bicarb 23, BUN 10, creatinine 0.9, glucose 110. Influenza testing negative. RSV positive. IMAGING: Chest x-ray: No acute cardiopulmonary disease seen, no infiltrates noted. ASSESSMENT AND PLAN: 1. Reactive airway disease. Patient denies ever smoking in the past and does not have history that I can find of COPD. She does, however, have significant wheezing on exam and is testing positive for RSV. I recommend scheduled DuoNeb nebulizers along with Solu-Medrol 40 mg every 6 hours. Monitor f or fevers. Could consider antibiotic therapy to cover potential secondary bacterial pneumonia, but a t this point time, she is afebrile with normal white blood cell count and positive RSV testing. 2. Respiratory syncytial virus. Continue supportive measures as above. 3. Atrial fibrillation, listed as paroxysmal. Patient is currently anticoagulated with Pradaxa and on metoprolol for rate control. She is in normal rhythm on exam today. 4. Obstructive sleep apnea. Patient is compliant with CPAP therapy. She does have her CPAP machine with her here in hospital. 5. Anxiety-depression. Continue current Wellbutrin and Lexapro. 6. Deep venous thrombosis prophylaxis. Lovenox. DISPOSITION: I anticipate she will be here for over 2 midnights, probably 3 to 5 days, so I will adm it her under inpatient status. /[id number]/MODL
[2017-04-18 05:09] LABS: PLATELET COUNT 170 10^3/uL (150-400)
[2017-04-18] MEDS: IPRATROPIUM/ALBUTEROL 3 ML DEYVIAL IH SCH ×4 (06:00→21:56)
[2017-04-18] MEDS: ESCITALOPRAM OXALATE 10 MG TAB PO SCH (09:11)
[2017-04-18] MEDS: ASPIRIN 81 MG CHEWABLE TAB PO SCH (09:12)
[2017-04-18] MEDS: DABIGATRAN ETEXILATE MESYL 150 MG CAP PO SCH ×2 (09:12→21:07)
[2017-04-18] MEDS: LORazepam 0.5 MG TAB PO SCH (09:14)
[2017-04-18] MEDS: buPROPion 75 MG TAB PO SCH ×2 (09:14→15:06)
--- NOTE | 2017-04-18 13:36 | HOSPPROG ---
Hospitalist Progress Note Assessment/Plan: 81y female with c/o cough and SOB. First encounter, chart reviewed. #RAD responding well to IV steriods feels unable to take po steriods due to adverse reactions in the past cont breathing treatments and supportive care change IV solumderol to Q12 #Hx lung CA stable, hx lobectomy #RSV supportive care #Afib cont home meds on pradaxa #BILLY cont CPAP #Anxiety/depression cont home meds #Dispo will likely DC in 1-2 days when breathing better cont IV solumedrol cont duonebs supportive care has home HHC Subjective: Up in bed. Anxious. No pain. Still coughing. Objective: Vital Signs Temp Pulse Resp BP Pulse Ox 36.7 C 99 20 107/67 88 L 04/18/17 08:00 04/18/17 08:00 04/18/17 08:00 04/18/17 08:00 04/18/17 12:20 Laboratory Results 04/18/17 04:47 04/18/17 04:30 04/17/17 04/18/17 04/19/17 05:59 05:59 05:59 Output Total 500 Balance -500 - Physical Exam Constitutional: appears nourished, not in pain, chronically ill appearing Eyes: PERRL, anicteric sclera, EOMI Ears, Nose, Mouth, Throat: moist mucous membranes, hearing normal, ears appear normal Cardiovascular: tachycardia, No JVD, No edema Respiratory: no rales or rhonchi, reduced air movement, expiratory wheeze Gastrointestinal: normoactive bowel sounds, No tenderness, No ascites Skin: warm, normal color, No mottled Musculoskeletal: normal joint ROM, no joint effusions, generalized weakness Psychiatric: not encephalopathic, anxious, poor insight, poor memory ICD10 Worksheet Patient Problems: Problems Problem Status Onset Chronic obstructive pulmonary disease with acute exacerbation Acute RSV (respiratory syncytial virus infection) Acute Lung cancer Chronic Atrial fibrillation Acute Chest pain Acute
--- NOTE | 2017-04-18 15:50 | ASMTCASEMG ---
Living Arrangements What is your living Answers: Alone arrangement? Who do you live with? Type Of Residence What kind of residence do Answers: Assisted Living you live in? Type of Residence Facility Name Notes: [facility] Discharge Plan Comments Coordination Status Comments Notes: CM spoke w/ Deborah Steele, [facility] ATTENDANT regarding d/c POC. Pt is a 81 y/o female admitted for COPD exacerbation, RSV infection and hypoxia. Therapies are recommending home without any needs. CM available for changes. Plan: Independent Date Signed: 04/18/2017 03:49 PM Electronically Signed By:MATEUS Schuster
[2017-04-18] MEDS ORDERED: ISOSORBIDE MONONITRATE 30 MG TAB.SR PO SCH (21:00)
[2017-04-18] MEDS ORDERED: NON-FORMULARY NEW DRUG (Ezetimibe/Simvastatin [Vytorin 10-20 Mg Tablet] 1 EACH) PO SCH (21:00)
[2017-04-19 00:12] VITALS: RESP 16
[2017-04-19] MEDS: IPRATROPIUM/ALBUTEROL 3 ML DEYVIAL IH SCH ×2 (05:30→12:31)
[2017-04-19 05:39] LABS: PLATELET COUNT 182 10^3/uL (150-400)
[2017-04-19 07:41] VITALS: BP 115/64; PULSE 70; TEMP 97.6; O2SAT 98
[2017-04-19] MEDS: METOPROLOL TARTRATE 25 MG TAB PO SCH (08:35)
[2017-04-19] MEDS: DABIGATRAN ETEXILATE MESYL 150 MG CAP PO SCH (08:35)
[2017-04-19] MEDS: ASPIRIN 81 MG CHEWABLE TAB PO SCH (08:36)
[2017-04-19] MEDS: buPROPion 75 MG TAB PO SCH ×2 (08:36→14:03)
[2017-04-19] MEDS: LORazepam 0.5 MG TAB PO SCH (08:36)
[2017-04-19] MEDS: methylPREDNISolone SOD SUCC 40 MG/ML VIAL IVP SCH (08:36)
[2017-04-19] MEDS: ESCITALOPRAM OXALATE 10 MG TAB PO SCH (08:36)
[2017-04-19] MEDS ORDERED: predniSONE 20 MG TAB PO SCH (12:15)
--- NOTE | 2017-04-19 13:19 | PDDCSUM ---
Discharge Summary Discharge Summary: DISCHARGE SUMMARY FOLLOW-UP ITEMS: Follow up with primary care provider DATE OF ADMISSION: 04/17/2017 DATE OF DISCHARGE: 04/19/2017 DISCHARGE DIAGNOSES: 1. Acute COPD exacerbation 2. Respiratory syncytial virus viral syndrome 3. Paroxysmal atrial fibrillation 4. Obstructive sleep apnea CONSULTATIONS: None PROCEDURES / IMAGING: Chest x-ray demonstrates no focal infiltrate CHIEF COMPLAINT: Cough SUBJECTIVE: Patient is feeling improved at discharge, she continues to experience her chronic cough but her presenting symptoms have significantly improved PHYSICAL EXAM ON DISCHARGE: Systolic blood pressure 115-125, heart rate 7200, satting on room air, alert awake oriented x3, lungs are clear to auscultation bilaterally without any crackles or expiratory wheezes, heart rhythm is regular LABS ON DISCHARGE: Hemoglobin 12.9, creatinine 0.7, potassium 4.1, RSV positive HOSPITAL COURSE BY PROBLEM: The patient presented with an acute COPD exacerbation evidenced by expiratory wheezes, worsening cough, most likely triggered by RSV. The patient was stabilized with IV steroids and DuoNeb treatments. She was continued on the IV steroids and titrated from q.6 hours to q.12 hours prior to discharge. She was then titrated to prednisone 40 mg daily on the day of discharge, and she tolerated this orally. She will be discharged with 3 subsequent days of this dose of prednisone as well as an as-needed albuterol inhaler. On the day of discharge, her expiratory wheezes are completely resolved. She did not receive an antibiotic given that her provoking cause was viral, and the patient was treated supportively for viral syndrome from RSV. She was seen by Physical and Occupational therapy, who recommended that she could discharge home to [place]. She was otherwise continued on all of her home medications. She continued on her HS CPAP. DISCHARGE MEDICATIONS: Please see official discharge medication reconciliation sheet in chart , as needed albuterol inhaler, prednisone 40 mg daily for 3 subsequent days, continue all other home medications. DISCHARGE INSTRUCTIONS: Please schedule follow-up with primary care provider and potentially pursue outpatient pulmonary function test. TIME SPENT: Greater than 30 minutes were spent on direct patient care, as well as discharge planning and preparation.
--- NOTE | 2017-04-19 13:34 | PDIAF ---
- Diagnosis Diagnosis: Acute COPD exacerbation, RSV Code Status: Do Not Resuscitate - Medication Management Discharge Medications: Medications to Continue on Transfer Escitalopram Oxalate [Lexapro 10 MG] 5 mg PO DAILY 04/19/14 [Last Taken 04/17/17 ] Ezetimibe/Simvastatin [Vytorin 10-20 mg Tablet] 1 each PO HS #0 04/19/14 [Last Taken 04/17/17] LORazepam [Ativan (*)] 1 mg PO HS 04/19/14 [Last Taken 04/16/17] Metoprolol Tartrate 12.5 mg PO BID 06/19/14 [Last Taken 04/17/17 15:00] Dabigatran Etexilate Mesyl [Pradaxa 150 MG (*)] 150 mg PO BID #0 cap 06/21/14 [ Last Taken 04/17/17 20:00] Acetaminophen [Tylenol 325mg (*)] 325 mg PO DAILY PRN 09/27/16 [Last Taken Unknown] Aspirin [Aspirin 81mg (*)] 81 mg PO DAILY 09/27/16 [Last Taken 09/27/16] Isosorbide Mononitrate [Imdur 30 mg (*)] 15 mg PO HS 09/27/16 [Last Taken ] LORazepam [Ativan (*)] 0.5 mg PO DAILY 09/27/16 [Last Taken 04/17/17] Nitroglycerin [Nitrostat 0.4 mg (*)] 0.4 mg SL Q5M PRN 09/27/16 [Last Taken Unknown] buPROPion [Wellbutrin 75mg (*)] 75 mg PO BID@0800,1500 09/27/16 [Last Taken 15:00] oxyCODONE/APAP 5/325 [Percocet 5/325 (*)] 1 tab PO DAILY PRN 09/27/16 [Last Taken Unknown] Brusher Warp Antibiotics: NA Discharge Medications: Refer to the Discharge Home Medication list for PRN reason. PICC Care - Routine: N/A - Orders Services needed: Home Care, Registered Nurse Home Care Face to Face: I certify that this patient was under my care and that I had the required [id number] encounter meeting the encounter requirements on the discharge day. My findings support the fact that the patient is homebound as defined in Home Care Face to Face Continued: [facility] Chapter 7 Medicare Benefits Manual 30.1.1 , The condition of the patient is such that there exists a normal inability to leave home and consequently, leaving home would require a considerable and taxing effort. Isolation Type: Contact Isolation, Droplet Isolation Oxygen: RA Diet Recommendation: no restrictions on diet Whittaker: Not applicable - Follow Up Care Current Providers and Referrals: Ammy Samaniego MD [Primary Care Provider] - As per Instructions
--- NOTE | 2017-04-19 15:22 | PDIAF ---
- Diagnosis Diagnosis: Acute COPD exacerbation, RSV Code Status: Do Not Resuscitate - Medication Management Discharge Medications: Medications to Continue on Transfer Escitalopram Oxalate [Lexapro 10 MG] 5 mg PO DAILY 04/19/14 [Last Taken 04/17/17 ] Ezetimibe/Simvastatin [Vytorin 10-20 mg Tablet] 1 each PO HS #0 04/19/14 [Last Taken 04/17/17] LORazepam [Ativan (*)] 1 mg PO HS 04/19/14 [Last Taken 04/16/17] Metoprolol Tartrate 12.5 mg PO BID 06/19/14 [Last Taken 04/17/17 15:00] Dabigatran Etexilate Mesyl [Pradaxa 150 MG (*)] 150 mg PO BID #0 cap 06/21/14 [ Last Taken 04/17/17 20:00] Acetaminophen [Tylenol 325mg (*)] 325 mg PO DAILY PRN 09/27/16 [Last Taken Unknown] Aspirin [Aspirin 81mg (*)] 81 mg PO DAILY 09/27/16 [Last Taken 09/27/16] Isosorbide Mononitrate [Imdur 30 mg (*)] 15 mg PO HS 09/27/16 [Last Taken ] LORazepam [Ativan (*)] 0.5 mg PO DAILY 09/27/16 [Last Taken 04/17/17] Nitroglycerin [Nitrostat 0.4 mg (*)] 0.4 mg SL Q5M PRN 09/27/16 [Last Taken Unknown] buPROPion [Wellbutrin 75mg (*)] 75 mg PO BID@0800,1500 09/27/16 [Last Taken 15:00] oxyCODONE/APAP 5/325 [Percocet 5/325 (*)] 1 tab PO DAILY PRN 09/27/16 [Last Taken Unknown] Allergy Physician Antibiotics: NA Discharge Medications: Refer to the Discharge Home Medication list for PRN reason. PICC Care - Routine: N/A - Orders Services needed: Home Care, Registered Nurse, [employer] Home Care Face to Face: I certify that this patient was under my care and that I had the required [id number] encounter meeting the encounter requirements on the discharge day. My findings support the fact that the patient is homebound as defined in Home Care Face to Face Continued: [facility] Chapter 7 Medicare Benefits Manual 30.1.1 , The condition of the patient is such that there exists a normal inability to leave home and consequently, leaving home would require a considerable and taxing effort. Isolation Type: Contact Isolation, Droplet Isolation Oxygen: RA Diet Recommendation: no restrictions on diet Whittaker: Not applicable - Follow Up Care Current Providers and Referrals: Ammy Samaniego MD [Primary Care Provider] - As per Instructions
--- NOTE | 2017-04-20 09:15 | ASDISCHSUM ---
Discharge Information Plan Status:Home with Home Health Medically Cleared to Leave:04/18/2017 Discharge Date:04/19/2017 04:37 PM CM D/C Disposition: ADT D/C Disposition:Home Health Service Projected Discharge Date:04/19/2017 11:00 AM Transportation at D/C: Discharge Delay Reason: Follow-Up Date:04/19/2017 11:00 AM Discharge Slot: Final Diagnosis: Placement Information Referral Type:*Home Health Care Services Referral ID:[id number] Provider Name:[facility] Address 1:[address] Address 2: City:[place] Selection Factors: State:[place] Patient Contact Information Contact Name:CARLY Relationship:Daughter Address: Work Phone: City: [facility] Phone: [facility] Code: Email: Financial Information Financial Class:Medicare Advantage Plans Primary Plan Desc:THELMA LUCÍA PPO MEDICARE Primary Plan Number:[id number] Secondary Plan Desc: Secondary Plan Number: Assessment Information [facility] Initial CM Assessment Living Arrangements What is your living Answers: Alone arrangement? Who do you live with? Type Of Residence What kind of residence do Answers: Assisted Living you live in? Type of Residence Facility Name Notes: [facility] Discharge Plan Comments Coordination Status Comments Notes: CM spoke w/ Deborah Steele NP regarding d/c POC. Pt is a 81 y/o female admitted for COPD exacerbation, RSV infection and hypoxia. Therapies are recommending home without any needs. CM available for changes. Plan: Independent Date Signed: 04/18/2017 03:49 PM Electronically Signed By:MATEUS Schuster Case Management Discharge Plan Note Case Management Discharge Discharge Order Complete? Answers: Yes Patient to Obtain Answers: Independently Medications Transportation Arranged Answers: Taxi - Self Pay EMTALA Complete Answers: No Case Management Transport Answers: No Form Complete Faxed Final Orders Answers: Yes Agency/Facility Transfer Answers: Yes Report Printed & Faxed to Receiving Agency Family Notified Answers: No Discharge Comments Notes: IMANI spoke w/ Dr. Wilhelm and DAVID Sheehan regarding d/c POC. CM met w/ pt for dispo planning. Pt is agreeable to having HC; RN and SW through [facility]. Referral sent to [facility]. [facility] is able to accept. [facility] will contact pt directly to schedule an appointment. CM sent d/c orders to [facility]. Pt reports that she will call a taxi herself for a ride home. CM available for changes. Plan: [facility] WEBB, RN and ANNETTE Date Signed: 04/19/2017 02:34 PM Electronically Signed By:MATEUS Schuster Intervention Information
== END 2017-04-19 16:37 | disposition home health service (06) | DRG 191 ==
LOC: OBSVTOIN 20:19 → F3E 21:00
PROVIDERS: ADMIT Internal Medicine; ATTEND Internal Medicine
DX: J44.1 Chronic obstructive pulmonary disease with (acute) exacerbation (principal); J96.11 Chronic respiratory failure with hypoxia; B97.4 Respiratory syncytial virus as the cause of diseases classified elsewhere; I25.10 Atherosclerotic heart disease of native coronary artery without angina pectoris; Z95.1 Presence of aortocoronary bypass graft; I48.0 Paroxysmal atrial fibrillation; G47.33 Obstructive sleep apnea (adult) (pediatric); Z86.718 Personal history of other venous thrombosis and embolism
CPT/HCPCS: 97161-GP; 97165-GO; 97535-GO; G8987-GO-CI; G8988-GO-CI; G8989-GO-CI; J2920; J2930; J7512

== ENCOUNTER → 2018-06-05 | Outpatient (CLI) | payer OTHER | LOC: BMCIMAGING 09:12 | PROVIDERS: ATTEND Family Medicine | DX: Z13.820 Encounter for screening for osteoporosis (principal); M81.0 Age-related osteoporosis without current pathological fracture; Z78.0 Asymptomatic menopausal state ==